=== PATIENT | female | born 1965 | race Caucasian/White ===

== ENCOUNTER → 2017-11-27 | Outpatient (CLI) | payer OTHER ==
[~2017-11-27] MED LIST: AMLO5TAB2 PO; BUDE10.2 IH; IPRA4AER IH; LEVO125T11 PO; MONT10TA21 PO; PRED20TA3 PO; PSEU60 PO
[2017-11-27 13:50] LABS: BASOPHILS % (AUTO) 0.9 % (0.0-5.0); EOSINOPHILS % (AUTO) 1.3 % (0.0-8.0); HEMATOCRIT 38.5 % (36-48); LYMPHOCYTES % (AUTO) 26.7 % (21.0-51.0); MEAN CORPUSCULAR HEMOGLOBIN 29.4 pg (27.0-33.0); MEAN CORPUSCULAR HGB CONC 33.3 g/dL (32.0-36.0); MEAN CORPUSCULAR VOLUME 88.5 fL (79-99); MONOCYTES % (AUTO) 6.9 % (3.0-13.0); NEUTROPHILS % (AUTO) 64.2 % (40.0-77.0); PLATELET COUNT (AUTO) 269 K/uL (130-400); RED BLOOD CELL COUNT(AUTO) 4.35 MIL/uL (4.00-5.50); RED CELL DISTRIBUTION WIDTH 16.6 % (11.0-15.5); WHITE BLOOD COUNT (AUTO) 8.8 K/uL (4.8-10.8)
[2017-11-27 14:07] LABS: ALBUMIN 3.8 g/dL (3.5-5.0); BILIRUBIN,DIRECT 0.1 mg/dL (0.0-0.3); BILIRUBIN,TOTAL 0.4 mg/dL (0.2-1.0); CREATININE 0.8 mg/dL (0.5-1.5); POTASSIUM 4.5 mmol/L (3.5-5.1); THYROID STIMULATING HORMONE 2.55 uIU/mL (0.36-3.74); TOTAL PROTEIN, SERUM 7.9 g/dL (6.0-8.3)
== END ==
LOC: LAB 13:12
PROVIDERS: ATTEND Internal Medicine
DX: I10 Essential (primary) hypertension (principal); E03.9 Hypothyroidism, unspecified
CPT/HCPCS: 36415; 80048; 80061; 80076; 84443; 85025

== ENCOUNTER → 2018-05-31 | Outpatient (CLI) | payer OTHER ==
[~2018-05-31] MED LIST changes: -AMLO5TAB2 PO; +AMLO5TAB7 PO
[2018-05-31 10:04] LABS: BASOPHILS % (AUTO) 0.6 % (0.0-5.0); EOSINOPHILS % (AUTO) 2.3 % (0.0-8.0); HEMATOCRIT 37.8 % (36-48); LYMPHOCYTES % (AUTO) 27.6 % (21.0-51.0); MEAN CORPUSCULAR HEMOGLOBIN 29.1 pg (27.0-33.0); MEAN CORPUSCULAR HGB CONC 32.4 g/dL (32.0-36.0); MEAN CORPUSCULAR VOLUME 89.9 fL (79-99); MONOCYTES % (AUTO) 8.7 % (3.0-13.0); NEUTROPHILS % (AUTO) 60.8 % (40.0-77.0); PLATELET COUNT (AUTO) 234 K/uL (130-400); RED CELL DISTRIBUTION WIDTH 15.6 % (11.0-15.5); WHITE BLOOD COUNT (AUTO) 5.7 K/uL (4.8-10.8)
[2018-05-31 10:34] LABS: ALBUMIN 3.5 g/dL (3.5-5.0); BILIRUBIN,TOTAL 0.2 mg/dL (0.2-1.0); CREATININE 0.8 mg/dL (0.5-1.5); POTASSIUM 3.9 mmol/L (3.5-5.1); THYROID STIMULATING HORMONE 9.3 uIU/mL (0.36-3.74); TOTAL PROTEIN, SERUM 7.1 g/dL (6.0-8.3)
== END | disposition home or self-care (01) ==
LOC: RAH 08:46
PROVIDERS: ATTEND Internal Medicine
DX: Z12.31 Encounter for screening mammogram for malignant neoplasm of breast (principal); M47.895 Other spondylosis, thoracolumbar region; E03.8 Other specified hypothyroidism; E78.5 Hyperlipidemia, unspecified; I10 Essential (primary) hypertension; J45.909 Unspecified asthma, uncomplicated; Z79.899 Other long term (current) drug therapy
CPT/HCPCS: 36415; 71046; 77067; 80053; 80061; 82607; 82652; 84443; 85025

== ENCOUNTER 2018-09-16 22:37 | Emergency (ER) | payer OTHER ==
[2018-09-16] MEDS ORDERED: FLUORESCEIN SODIUM 1 STRIP STRIP ONE (23:39)
[2018-09-17] MEDS ORDERED: GENTAMICIN SULFATE 0.3% 5ML DROPS ONE (00:04)
== END 2018-09-17 00:14 | disposition home or self-care (01) ==
LOC: EDH 22:37
DX: S05.01XA Injury of conjunctiva and corneal abrasion without foreign body, right eye, initial encounter (principal); J45.909 Unspecified asthma, uncomplicated; E78.5 Hyperlipidemia, unspecified; I10 Essential (primary) hypertension; Z88.6 Allergy status to analgesic agent; Z88.8 Allergy status to other drugs, medicaments and biological substances; X58.XXXA Exposure to other specified factors, initial encounter; Y93.89 Activity, other specified; Y92.89 Other specified places as the place of occurrence of the external cause; Y99.8 Other external cause status

== ENCOUNTER → 2018-11-12 | Outpatient (CLI) | payer OTHER ==
[~2018-11-12] MED LIST changes: -AMLO5TAB7 PO; +AMLO5TAB9 PO
[2018-11-12 09:41] LABS: BASOPHILS % (AUTO) 0.8 % (0.0-5.0); EOSINOPHILS % (AUTO) 3.1 % (0.0-8.0); HEMATOCRIT 35.4 % (36-48); LYMPHOCYTES % (AUTO) 24.3 % (21.0-51.0); MEAN CORPUSCULAR HEMOGLOBIN 28.9 pg (27.0-33.0); MEAN CORPUSCULAR HGB CONC 32.7 g/dL (32.0-36.0); MEAN CORPUSCULAR VOLUME 88.4 fL (79-99); MONOCYTES % (AUTO) 8.4 % (3.0-13.0); NEUTROPHILS % (AUTO) 63.4 % (40.0-77.0); PLATELET COUNT (AUTO) 294 K/uL (130-400); RED CELL DISTRIBUTION WIDTH 16.8 % (11.0-15.5); WHITE BLOOD COUNT (AUTO) 6.3 K/uL (4.8-10.8)
[2018-11-12 10:05] LABS: ALBUMIN 3.3 g/dL (3.5-5.0); BILIRUBIN,TOTAL 0.3 mg/dL (0.2-1.0); CREATININE 0.8 mg/dL (0.5-1.5); POTASSIUM 4.7 mmol/L (3.5-5.1); THYROID STIMULATING HORMONE 4.47 uIU/mL (0.36-3.74); TOTAL PROTEIN, SERUM 7.1 g/dL (6.0-8.3)
== END | disposition home or self-care (01) ==
LOC: LAB 09:19
PROVIDERS: ATTEND Internal Medicine
DX: E78.2 Mixed hyperlipidemia (principal); E03.8 Other specified hypothyroidism
CPT/HCPCS: 36415; 80053; 84443; 85025

== ENCOUNTER 2019-01-01 05:39 | Day surgery (SDC) | payer OTHER ==
[~2019-01-01] VITALS: Ht 162.6 cm; Wt 117.9 kg
[~2019-01-01 05:39] MED LIST changes: -AMLO5TAB9 PO; +DIPH25 PO; +HYDR12.530 PO; -IPRA4AER IH; -LEVO125T11 PO; +LEVO150T11 PO; +NEBI10TA PO; -PRED20TA3 PO; -PSEU60 PO
[2019-01-01] MEDS ORDERED: SODIUM CHLORIDE 0.9% 1000ML 1,000 ML IV ONE (05:44)
[2019-01-01] MEDS ORDERED: PROPOFOL 10 MG/ML 20ML VIAL IV ONE (07:27)
[2019-01-01] MEDS ORDERED: LIDOCAINE HCL 1% 20 ML VIAL ONE (07:27)
[2019-01-01 07:46] VITALS: BP 117/75
[2019-01-01 08:04] VITALS: BP 135/81
== END 2019-01-01 08:16 | disposition home or self-care (01) ==
LOC: DAH 05:39 → ENDO 05:39
PROVIDERS: ATTEND Internal Medicine
DX: Z12.11 Encounter for screening for malignant neoplasm of colon (principal); K63.3 Ulcer of intestine; K63.5 Polyp of colon; K62.89 Other specified diseases of anus and rectum; E78.5 Hyperlipidemia, unspecified; I10 Essential (primary) hypertension; J45.909 Unspecified asthma, uncomplicated; E03.9 Hypothyroidism, unspecified; Z79.899 Other long term (current) drug therapy; Z98.890 Other specified postprocedural states; Z68.42 Body mass index [BMI] 45.0-49.9, adult; Z88.8 Allergy status to other drugs, medicaments and biological substances; E66.9 Obesity, unspecified
CPT/HCPCS: 45380; A4606; J2704; J7030

== ENCOUNTER → 2019-06-24 | Outpatient (CLI) | payer OTHER ==
[2019-06-24 07:15] LABS: BASOPHILS % (AUTO) 1.2 % (0.0-5.0); EOSINOPHILS % (AUTO) 3.1 % (0.0-8.0); HEMATOCRIT 38.7 % (36-48); LYMPHOCYTES % (AUTO) 24.2 % (21.0-51.0); MEAN CORPUSCULAR HEMOGLOBIN 28.5 pg (27.0-33.0); MEAN CORPUSCULAR HGB CONC 32.9 g/dL (32.0-36.0); MEAN CORPUSCULAR VOLUME 86.9 fL (79-99); MONOCYTES % (AUTO) 10.7 % (3.0-13.0); NEUTROPHILS % (AUTO) 60.8 % (40.0-77.0); PLATELET COUNT (AUTO) 300 K/uL (130-400); RED BLOOD CELL COUNT(AUTO) 4.45 MIL/uL (4.00-5.50); RED CELL DISTRIBUTION WIDTH 16.9 % (11.0-15.5); WHITE BLOOD COUNT (AUTO) 8.5 K/uL (4.8-10.8)
[2019-06-24 07:34] LABS: ALBUMIN 3.6 g/dL (3.5-5.0); BILIRUBIN,DIRECT 0.1 mg/dL (0.0-0.3); BILIRUBIN,TOTAL 0.3 mg/dL (0.2-1.0); POTASSIUM 4.2 mmol/L (3.5-5.1); THYROID STIMULATING HORMONE 14.67 uIU/mL (0.36-3.74); TOTAL PROTEIN, SERUM 7.6 g/dL (6.0-8.3)
== END | disposition home or self-care (01) ==
LOC: LAB 06-20 10:41
PROVIDERS: ATTEND Internal Medicine
DX: E03.8 Other specified hypothyroidism (principal); I10 Essential (primary) hypertension; D64.89 Other specified anemias; D64.9 Anemia, unspecified
CPT/HCPCS: 36415; 80048; 80061; 80076; 84443; 85025

== ENCOUNTER → 2019-11-03 | Outpatient (CLI) | payer OTHER ==
[2019-11-03 06:44] LABS: BASOPHILS % (AUTO) 0.6 % (0.0-5.0); EOSINOPHILS % (AUTO) 4.7 % (0.0-8.0); LYMPHOCYTES % (AUTO) 35.2 % (21.0-51.0); MEAN CORPUSCULAR HEMOGLOBIN 27.7 pg (27.0-33.0); MEAN CORPUSCULAR HGB CONC 31.4 g/dL (32.0-36.0); MEAN CORPUSCULAR VOLUME 88.3 fL (79-99); NEUTROPHILS % (AUTO) 49.2 % (40.0-77.0); PLATELET COUNT (AUTO) 283 K/uL (130-400); RED BLOOD CELL COUNT(AUTO) 4.19 MIL/uL (4.00-5.50); RED CELL DISTRIBUTION WIDTH 16.8 % (11.0-15.5); WHITE BLOOD COUNT (AUTO) 7.1 K/uL (4.8-10.8)
[2019-11-03 07:09] LABS: ALBUMIN 3.2 g/dL (3.5-5.0); BILIRUBIN,TOTAL 0.3 mg/dL (0.2-1.0); CREATININE 0.8 mg/dL (0.5-1.5); POTASSIUM 4.3 mmol/L (3.5-5.1); THYROID STIMULATING HORMONE 4.26 uIU/mL (0.36-3.74); TOTAL PROTEIN, SERUM 6.9 g/dL (6.0-8.3)
[2019-11-03 07:27] LABS: BILIRUBIN,DIRECT 0.1 mg/dL (0.0-0.3)
== END | disposition home or self-care (01) ==
LOC: LAB 06:33
PROVIDERS: ATTEND Internal Medicine
DX: R73.01 Impaired fasting glucose (principal); E03.8 Other specified hypothyroidism; I10 Essential (primary) hypertension; D64.89 Other specified anemias; E78.2 Mixed hyperlipidemia
CPT/HCPCS: 36415; 80048; 80076; 84443; 85025

== ENCOUNTER → 2020-02-27 | Outpatient (CLI) | payer OTHER ==
[2020-02-27 06:44] LABS: BASOPHILS % (AUTO) 0.7 % (0.0-5.0); EOSINOPHILS % (AUTO) 4.8 % (0.0-8.0); HEMATOCRIT 35.9 % (36-48); LYMPHOCYTES % (AUTO) 32.6 % (21.0-51.0); MEAN CORPUSCULAR HEMOGLOBIN 27.8 pg (27.0-33.0); MEAN CORPUSCULAR HGB CONC 31.2 g/dL (32.0-36.0); MEAN CORPUSCULAR VOLUME 89.1 fL (79-99); MONOCYTES % (AUTO) 9.5 % (3.0-13.0); NEUTROPHILS % (AUTO) 52.4 % (40.0-77.0); PLATELET COUNT (AUTO) 276 K/uL (130-400); RED BLOOD CELL COUNT(AUTO) 4.03 MIL/uL (4.00-5.50); RED CELL DISTRIBUTION WIDTH 16.9 % (11.0-15.5); WHITE BLOOD COUNT (AUTO) 5.9 K/uL (4.8-10.8)
[2020-02-27 07:13] LABS: ALBUMIN 3.3 g/dL (3.5-5.0); BILIRUBIN,DIRECT 0.1 mg/dL (0.0-0.3); BILIRUBIN,TOTAL 0.3 mg/dL (0.2-1.0); CREATININE 1.1 mg/dL (0.5-1.5); POTASSIUM 3.8 mmol/L (3.5-5.1); THYROID STIMULATING HORMONE 12.42 uIU/mL (0.36-3.74)
== END | disposition home or self-care (01) ==
LOC: LAB 10:00
PROVIDERS: ATTEND Internal Medicine
DX: I10 Essential (primary) hypertension (principal); E03.8 Other specified hypothyroidism; D64.89 Other specified anemias; R73.01 Impaired fasting glucose
CPT/HCPCS: 36415; 80048; 80061; 80076; 84443; 85025

== ENCOUNTER → 2020-03-18 | Outpatient (CLI) | payer OTHER | END | disposition home or self-care (01) | LOC: RAH 08:25 | PROVIDERS: ATTEND Internal Medicine | DX: E03.8 Other specified hypothyroidism (principal) | CPT/HCPCS: 76536 ==

== ENCOUNTER → 2020-06-28 | Outpatient (CLI) | payer OTHER | END | disposition home or self-care (01) | LOC: LAB 09:47 | PROVIDERS: ATTEND Internal Medicine | DX: E03.8 Other specified hypothyroidism (principal) | CPT/HCPCS: 36415; 84443 ==

== ENCOUNTER → 2020-11-10 | Outpatient (CLI) | payer OTHER ==
[2020-11-10 12:48] LABS: BASOPHILS % (AUTO) 0.8 % (0.0-5.0); EOSINOPHILS % (AUTO) 5.5 % (0.0-8.0); HEMATOCRIT 41.2 % (36-48); LYMPHOCYTES % (AUTO) 34.2 % (21.0-51.0); MEAN CORPUSCULAR HEMOGLOBIN 28.8 pg (27.0-33.0); MEAN CORPUSCULAR HGB CONC 31.6 g/dL (32.0-36.0); MEAN CORPUSCULAR VOLUME 91.4 fL (79-99); NEUTROPHILS % (AUTO) 50.3 % (40.0-77.0); PLATELET COUNT (AUTO) 208 K/uL (130-400); RED BLOOD CELL COUNT(AUTO) 4.51 MIL/uL (4.00-5.50); RED CELL DISTRIBUTION WIDTH 15.1 % (11.0-15.5); WHITE BLOOD COUNT (AUTO) 6.3 K/uL (4.8-10.8)
[2020-11-10 13:13] LABS: ALBUMIN 3.9 g/dL (3.5-5.0); BILIRUBIN,DIRECT 0.2 mg/dL (0.0-0.3); BILIRUBIN,TOTAL 0.3 mg/dL (0.2-1.0); CREATININE 0.9 mg/dL (0.5-1.5); POTASSIUM 4.4 mmol/L (3.5-5.1); THYROID STIMULATING HORMONE 4.15 uIU/mL (0.36-3.74); TOTAL PROTEIN, SERUM 7.9 g/dL (6.0-8.3)
== END | disposition home or self-care (01) ==
LOC: LAB 12:23
PROVIDERS: ATTEND Internal Medicine
DX: E03.8 Other specified hypothyroidism (principal)
CPT/HCPCS: 36415; 80053; 80061; 80076; 84443; 85025

== ENCOUNTER → 2021-01-03 | Outpatient (CLI) | payer OTHER | END | disposition home or self-care (01) | LOC: RAH 10:00 | PROVIDERS: ATTEND Internal Medicine | DX: Z12.31 Encounter for screening mammogram for malignant neoplasm of breast (principal); Z00.01 Encounter for general adult medical examination with abnormal findings | CPT/HCPCS: 77067 ==

== ENCOUNTER → 2021-03-15 | Outpatient (CLI) | payer OTHER ==
[2021-03-15 10:36] LABS: BASOPHILS % (AUTO) 0.7 % (0.0-5.0); EOSINOPHILS % (AUTO) 6.8 % (0.0-8.0); HEMATOCRIT 40.3 % (36-48); LYMPHOCYTES % (AUTO) 25.9 % (21.0-51.0); MEAN CORPUSCULAR HEMOGLOBIN 29.5 pg (27.0-33.0); MONOCYTES % (AUTO) 9.1 % (3.0-13.0); NEUTROPHILS % (AUTO) 57.4 % (40.0-77.0); PLATELET COUNT (AUTO) 243 K/uL (130-400); RED BLOOD CELL COUNT(AUTO) 4.38 MIL/uL (4.00-5.50); RED CELL DISTRIBUTION WIDTH 14.4 % (11.0-15.5); WHITE BLOOD COUNT (AUTO) 7.1 K/uL (4.8-10.8)
[2021-03-15 11:05] LABS: ALBUMIN 3.9 g/dL (3.5-5.0); BILIRUBIN,TOTAL 0.3 mg/dL (0.2-1.0); CREATININE 0.9 mg/dL (0.5-1.5); POTASSIUM 4.2 mmol/L (3.5-5.1); THYROID STIMULATING HORMONE 5.67 uIU/mL (0.36-3.74); TOTAL PROTEIN, SERUM 7.6 g/dL (6.0-8.3)
== END | disposition home or self-care (01) ==
LOC: LAB 10:02
PROVIDERS: ATTEND Internal Medicine
DX: E78.2 Mixed hyperlipidemia (principal); I10 Essential (primary) hypertension; E03.8 Other specified hypothyroidism; J45.998 Other asthma; T78.3XXA Angioneurotic edema, initial encounter; Z76.89 Persons encountering health services in other specified circumstances
CPT/HCPCS: 36415; 80053; 80061; 84443; 85025

== ENCOUNTER → 2021-08-22 | Outpatient (CLI) | payer OTHER ==
[2021-08-22 14:28] LABS: BASOPHILS % (AUTO) 0.9 % (0.0-5.0); EOSINOPHILS % (AUTO) 8.6 % (0.0-8.0); HEMATOCRIT 38.9 % (36-48); LYMPHOCYTES % (AUTO) 27.1 % (21.0-51.0); MEAN CORPUSCULAR HEMOGLOBIN 28.6 pg (27.0-33.0); MEAN CORPUSCULAR HGB CONC 31.4 g/dL (32.0-36.0); MEAN CORPUSCULAR VOLUME 91.1 fL (79-99); MONOCYTES % (AUTO) 7.6 % (3.0-13.0); NEUTROPHILS % (AUTO) 55.5 % (40.0-77.0); PLATELET COUNT (AUTO) 270 K/uL (130-400); RED BLOOD CELL COUNT(AUTO) 4.27 MIL/uL (4.00-5.50); RED CELL DISTRIBUTION WIDTH 14.7 % (11.0-15.5); WHITE BLOOD COUNT (AUTO) 7.9 K/uL (4.8-10.8)
[2021-08-22 14:54] LABS: BILIRUBIN,TOTAL 0.2 mg/dL (0.2-1.0); CREATININE 0.9 mg/dL (0.5-1.5); POTASSIUM 4.3 mmol/L (3.5-5.1); THYROID STIMULATING HORMONE 2.96 uIU/mL (0.36-3.74); TOTAL PROTEIN, SERUM 7.9 g/dL (6.0-8.3)
== END | disposition home or self-care (01) ==
LOC: LAB 14:09
PROVIDERS: ATTEND Internal Medicine
DX: I10 Essential (primary) hypertension (principal); E03.8 Other specified hypothyroidism; E78.2 Mixed hyperlipidemia; J45.998 Other asthma; D64.9 Anemia, unspecified; T78.3XXA Angioneurotic edema, initial encounter; Z76.89 Persons encountering health services in other specified circumstances
CPT/HCPCS: 36415; 80053; 80061; 84443; 85025

== ENCOUNTER → 2022-02-06 | Outpatient (CLI) | payer OTHER ==
[2022-02-06 10:35] LABS: BASOPHILS % (AUTO) 0.8 % (0.0-5.0); EOSINOPHILS % (AUTO) 7.9 % (0.0-8.0); HEMATOCRIT 40.8 % (36-48); LYMPHOCYTES % (AUTO) 29.7 % (21.0-51.0); MEAN CORPUSCULAR HEMOGLOBIN 29.2 pg (27.0-33.0); MEAN CORPUSCULAR HGB CONC 32.1 g/dL (32.0-36.0); MEAN CORPUSCULAR VOLUME 91.1 fL (79-99); MONOCYTES % (AUTO) 9.1 % (3.0-13.0); NEUTROPHILS % (AUTO) 52.2 % (40.0-77.0); PLATELET COUNT (AUTO) 256 K/uL (130-400); RED BLOOD CELL COUNT(AUTO) 4.48 MIL/uL (4.00-5.50); RED CELL DISTRIBUTION WIDTH 15.3 % (11.0-15.5); WHITE BLOOD COUNT (AUTO) 7.1 K/uL (4.8-10.8)
[2022-02-06 10:58] LABS: ALBUMIN 3.6 g/dL (3.5-5.0); BILIRUBIN,TOTAL 0.2 mg/dL (0.2-1.0); CREATININE 0.9 mg/dL (0.5-1.5); POTASSIUM 4.4 mmol/L (3.5-5.1); THYROID STIMULATING HORMONE 5.67 uIU/mL (0.36-3.74); TOTAL PROTEIN, SERUM 7.5 g/dL (6.0-8.3)
== END | disposition home or self-care (01) ==
LOC: LAB 09:43
PROVIDERS: ATTEND Internal Medicine
DX: E78.2 Mixed hyperlipidemia (principal); I10 Essential (primary) hypertension
CPT/HCPCS: 36415; 80053; 80061; 84443; 85025

== ENCOUNTER → 2022-02-14 | Outpatient (CLI) | payer OTHER | END | disposition home or self-care (01) | LOC: RAH 13:12 | PROVIDERS: ATTEND Internal Medicine | DX: M17.11 Unilateral primary osteoarthritis, right knee (principal); M25.561 Pain in right knee | CPT/HCPCS: 73560 ==

== ENCOUNTER 2022-05-09 08:00 | Observation (INO) | payer OTHER ==
[~2022-05-09] VITALS: Ht 162.6 cm; Wt 112.3 kg
[~2022-05-09 08:00] MED LIST changes: -BUDE10.2 IH; -DIPH25 PO; -HYDR12.530 PO; -LEVO150T11 PO; -NEBI10TA PO
[2022-05-09 10:28] LABS: BASOPHILS % (AUTO) 0.7 % (0.0-5.0); EOSINOPHILS % (AUTO) 6.6 % (0.0-8.0); HEMATOCRIT 38.3 % (36-48); LYMPHOCYTES % (AUTO) 34.2 % (21.0-51.0); MEAN CORPUSCULAR HEMOGLOBIN 29.4 pg (27.0-33.0); MEAN CORPUSCULAR HGB CONC 32.1 g/dL (32.0-36.0); MEAN CORPUSCULAR VOLUME 91.4 fL (79-99); MONOCYTES % (AUTO) 10.1 % (3.0-13.0); NEUTROPHILS % (AUTO) 48.2 % (40.0-77.0); PLATELET COUNT (AUTO) 237 K/uL (130-400); RED BLOOD CELL COUNT(AUTO) 4.19 MIL/uL (4.00-5.50); WHITE BLOOD COUNT (AUTO) 5.9 K/uL (4.8-10.8)
[2022-05-09] MEDS ORDERED: METO-391 PO (10:28)
[2022-05-09] MEDS ORDERED: BUDE10.22 IH (10:28)
[2022-05-09] MEDS ORDERED: NAPROXEN PO (10:28)
[2022-05-09] MEDS ORDERED: FEXO180T94 PO (10:28)
[2022-05-09] MEDS ORDERED: LEVO175T9 PO (10:28)
[2022-05-09] MEDS ORDERED: GUAI600T50 PO (10:28)
[2022-05-09 10:52] LABS: INR 0.95 (0.85-1.15); PROTHROMBIN TIME 10.4 SEC (9.6-11.6)
[2022-05-09 10:54] LABS: PARTIAL THROMBOPLASTIN TIME 28.7 SEC (26.3-35.5)
[2022-05-12 09:04] VITALS: BP 144/87
[2022-05-12] MEDS: CEFAZOLIN SODIUM 1 GM VIAL IVP SCH (09:30)
[2022-05-15] VITALS (28 sets, daily range): BP systolic 99–158; BP diastolic 43–91
[2022-05-15] MEDS ORDERED: LACTATED RINGERS 1000ML 1,000 ML IV ONE (07:10)
[2022-05-15] MEDS ORDERED: FAMOTIDINE 20MG VIAL IV ONE (07:38)
[2022-05-15] MEDS ORDERED: GLYCOPYRROLATE 1 MG/5 ML SYRINGE ONE (07:41)
[2022-05-15] MEDS ORDERED: FENTANYL CITRATE PF 50 MCG/1 ML 2ML VIAL ONE ×2 (07:41→08:55)
[2022-05-15] MEDS ORDERED: ROCURONIUM 10MG/1ML SYR 10 MG/ML ML ONE (07:41)
[2022-05-15] MEDS ORDERED: PROPOFOL 10 MG/ML 20ML VIAL IV ONE (07:41)
[2022-05-15] MEDS ORDERED: LIDOCAINE PF 100MG/5ML (2%) SYRINGE 5ML ONE (07:44)
[2022-05-15] MEDS ORDERED: NEOMY SULF/BACITRAC ZN/POLY OINT 30GM TUBE TP ONE (07:51)
[2022-05-15] MEDS ORDERED: TRANEXAMIC ACID 1000MG/10ML ONE (07:52)
[2022-05-15] MEDS ORDERED: VANCOMYCIN 1G VIAL ONE (07:52)
[2022-05-15] MEDS: CEFAZOLIN SODIUM 1 GM VIAL IVP SCH (08:25)
[2022-05-15] MEDS ORDERED: MEPERIDINE-PF 25 MG/ML SYG ONE ×2 (10:21→11:39)
[2022-05-15] MEDS ORDERED: NEOSTIGMINE 5MG/5ML SYR IV ONE (10:22)
[2022-05-15] MEDS ORDERED: DiphenhydrAMINE HCL 50 MG/ML VIAL ONE (10:38)
[2022-05-15] MEDS ORDERED: MIDAZOLAM HCL 1 MG/ML 2ML VIAL ONE (10:56)
[2022-05-15] MEDS ORDERED: HYDROCODONE/ACETAMINOPHEN 5/325 MG TAB PO PRN (11:00)
[2022-05-15] MEDS ORDERED: KCL 20 MEQ ERTAB PO PRN (11:00)
[2022-05-15] MEDS ORDERED: HYDROCODONE/ACETAMINOPHEN 10/325 MG TAB PO PRN (11:00)
[2022-05-15] MEDS ORDERED: POTASSIUM CHLORIDE 10% ELIXIR 20 MEQ/15 ML UDCUP PO PRN (11:00)
[2022-05-15] MEDS ORDERED: LIDOCAINE HCL-MPF 1% 2ML VIAL IV PRN (11:00)
[2022-05-15] MEDS ORDERED: POTASSIUM CHLORIDE 20MEQ/100ML 100 ML IV PRN (11:00)
[2022-05-15] MEDS ORDERED: ONDANSETRON 4MG INJ IVP PRN (11:00)
[2022-05-15] MEDS: ACETAMINOPHEN 500 MG TABLET PO SCH ×2 (11:00→18:10)
[2022-05-15] MEDS ORDERED: HYDROMORPHONE 1 MG INJ ONE (11:12)
[2022-05-15] MEDS: TRAMADOL HCL 50 MG TABLET PO SCH ×3 (12:00→23:28)
[2022-05-15] MEDS: MORPHINE 4 MG SYG IVP PRN ×3 (13:07→20:32)
[2022-05-15] MEDS ORDERED: HYDR12.54 PO (20:20)
[2022-05-15] MEDS: BUDESONIDE 0.5 MG/2 ML INH IH SCH (20:24)
[2022-05-15] MEDS: FAMOTIDINE 20MG TAB PO SCH (20:28)
[2022-05-15] MEDS: ASPIRIN 81 MG EC TAB PO SCH (20:28)
[2022-05-15] MEDS ORDERED: MONTELUKAST SODIUM 10 MG TAB PO SCH (21:00)
[2022-05-15] MEDS: ALBUTEROL 0.083% 2.5 MG/3 ML INH IH SCH (23:16)
[2022-05-16] MEDS: ACETAMINOPHEN 500 MG TABLET PO SCH (03:16)
[2022-05-16 04:09] VITALS: BP 119/68
[2022-05-16 04:14] LABS: HEMATOCRIT 35.3 % (36-48); MEAN CORPUSCULAR HEMOGLOBIN 29.2 pg (27.0-33.0); MEAN CORPUSCULAR VOLUME 91.2 fL (79-99); RED BLOOD CELL COUNT(AUTO) 3.87 MIL/uL (4.00-5.50); RED CELL DISTRIBUTION WIDTH 14.5 % (11.0-15.5); WHITE BLOOD COUNT (AUTO) 10.3 K/uL (4.8-10.8)
[2022-05-16 04:23] LABS: CREATININE 0.9 mg/dL (0.5-1.5); POTASSIUM 4.3 mmol/L (3.5-5.1)
[2022-05-16] MEDS: TRAMADOL HCL 50 MG TABLET PO SCH ×2 (06:10→12:00)
[2022-05-16] MEDS: ALBUTEROL 0.083% 2.5 MG/3 ML INH IH SCH ×2 (06:22→11:07)
[2022-05-16] MEDS: BUDESONIDE 0.5 MG/2 ML INH IH SCH (06:22)
[2022-05-16] MEDS ORDERED: LEVOTHYROXINE 100 MCG TABLET PO SCH (06:30)
[2022-05-16] MEDS ORDERED: LEVOTHYROXINE 75 MCG TABLET PO SCH (06:30)
[2022-05-16 08:00] VITALS: BP 140/68
[2022-05-16] MEDS: ASPIRIN 81 MG EC TAB PO SCH (08:13)
[2022-05-16] MEDS: FAMOTIDINE 20MG TAB PO SCH (09:00)
[2022-05-16] MEDS ORDERED: METOPROLOL SUCCINATE 50 MG TAB.SR.24H PO SCH (09:00)
[2022-05-16] MEDS ORDERED: POLYETHYLENE GLYCOL 3350 17 GM POWD.PACK PO SCH (09:00)
[2022-05-16] MEDS ORDERED: NAPROXEN 500 MG TABLET PO SCH (09:00)
[2022-05-16] MEDS ORDERED: HYDROCHLOROTHIAZIDE 25 MG TABLET PO SCH (09:00)
[2022-05-16] MEDS ORDERED: CETIRIZINE HCL 5 MG TABLET PO SCH (09:00)
[2022-05-16] MEDS ORDERED: GUAIFENESIN 600 MG TABLET.ER PO SCH (09:00)
[2022-05-16 12:00] VITALS: BP 123/76
[2022-05-16] MEDS ORDERED: ACETAMINOPHEN 500 MG TABLET PO SCH (14:00)
[2022-05-18] MEDS ORDERED: BISACODYL 10 MG SUPP.RECT RC PRN (11:00)
== END 2022-05-16 16:50 | disposition home or self-care (01) ==
LOC: INTOOBSV 05-15 06:49 → OBSVTOIN 05-15 06:49 → DAHIP 05-15 06:49 → EDSTATUS 05-15 10:00 → 4AH 05-15 12:30
PROVIDERS: ADMIT Orthopaedic Surgery Sports Medicine; ATTEND Orthopaedic Surgery Sports Medicine
DX: M17.11 Unilateral primary osteoarthritis, right knee (principal); Z20.822 Contact with and (suspected) exposure to COVID-19; I10 Essential (primary) hypertension; J45.909 Unspecified asthma, uncomplicated; Z79.899 Other long term (current) drug therapy
CPT/HCPCS: 0055T; 27446; 36415; 73560; 80048; 85025; 85027; 85610; 85730; 87426; 94640; 94664; 96374; 96375; 96376; 97039; G0378; J0690; J1170; J1200; J2001; J2175; J2250; J2270; J2405; J2704; J2710; J3010; J3370; J3490; J7030; J7120

== ENCOUNTER → 2022-06-15 | Outpatient (CLI) | payer OTHER ==
[~2022-06-15] MED LIST changes: +BUDE10.22 IH; +FEXO180T94 PO; +GUAI600T50 PO; +HYDR12.54 PO; +LEVO175T9 PO; +METO-391 PO; +NAPROXEN PO
[2022-06-15 12:18] LABS: BASOPHILS % (AUTO) 0.6 % (0.0-5.0); EOSINOPHILS % (AUTO) 10.3 % (0.0-8.0); HEMATOCRIT 37.5 % (36-48); MEAN CORPUSCULAR HEMOGLOBIN 29.4 pg (27.0-33.0); MEAN CORPUSCULAR HGB CONC 32.3 g/dL (32.0-36.0); MONOCYTES % (AUTO) 8.3 % (3.0-13.0); NEUTROPHILS % (AUTO) 58.5 % (40.0-77.0); PLATELET COUNT (AUTO) 248 K/uL (130-400); RED BLOOD CELL COUNT(AUTO) 4.12 MIL/uL (4.00-5.50); RED CELL DISTRIBUTION WIDTH 14.5 % (11.0-15.5); WHITE BLOOD COUNT (AUTO) 9.5 K/uL (4.8-10.8)
[2022-06-15 12:47] LABS: POTASSIUM 4.2 mmol/L (3.5-5.1); THYROID STIMULATING HORMONE 3.65 uIU/mL (0.36-3.74); TOTAL PROTEIN, SERUM 7.5 g/dL (6.0-8.3)
== END | disposition home or self-care (01) ==
LOC: LAB 11:10
PROVIDERS: ATTEND Internal Medicine
DX: Z00.00 Encounter for general adult medical examination without abnormal findings (principal); M25.561 Pain in right knee; E78.2 Mixed hyperlipidemia; J45.998 Other asthma; E03.8 Other specified hypothyroidism; I10 Essential (primary) hypertension; R73.01 Impaired fasting glucose; Z68.41 Body mass index [BMI] 40.0-44.9, adult; E66.01 Morbid (severe) obesity due to excess calories; Z71.2 Person consulting for explanation of examination or test findings
CPT/HCPCS: 36415; 80053; 80061; 84443; 85025

== ENCOUNTER → 2023-02-23 | Outpatient (CLI) | payer OTHER ==
[~2023-02-23] MED LIST changes: +MONT-46 PO; -MONT10TA21 PO
[2023-02-23 08:00] LABS: BASOPHILS % (AUTO) 0.6 % (0.0-5.0); EOSINOPHILS % (AUTO) 4.1 % (0.0-8.0); HEMATOCRIT 40.6 % (36-48); LYMPHOCYTES % (AUTO) 31.6 % (21.0-51.0); MEAN CORPUSCULAR HEMOGLOBIN 27.8 pg (27.0-33.0); MEAN CORPUSCULAR HGB CONC 31.5 g/dL (32.0-36.0); MEAN CORPUSCULAR VOLUME 88.1 fL (79-99); MONOCYTES % (AUTO) 10.2 % (3.0-13.0); NEUTROPHILS % (AUTO) 53.3 % (40.0-77.0); PLATELET COUNT (AUTO) 248 K/uL (130-400); RED BLOOD CELL COUNT(AUTO) 4.61 MIL/uL (4.00-5.50); RED CELL DISTRIBUTION WIDTH 15.3 % (11.0-15.5); WHITE BLOOD COUNT (AUTO) 5.3 K/uL (4.8-10.8)
[2023-02-23 08:31] LABS: ALBUMIN 3.6 g/dL (3.5-5.0); CREATININE 0.9 mg/dL (0.5-1.5); POTASSIUM 4.1 mmol/L (3.5-5.1); THYROID STIMULATING HORMONE 0.45 uIU/mL (0.36-3.74); TOTAL PROTEIN, SERUM 7.5 g/dL (6.0-8.3)
== END | disposition home or self-care (01) ==
LOC: LAB 10:00
PROVIDERS: ATTEND Internal Medicine
DX: I10 Essential (primary) hypertension (principal); E03.8 Other specified hypothyroidism; E78.2 Mixed hyperlipidemia; J45.998 Other asthma; E66.01 Morbid (severe) obesity due to excess calories; Z71.2 Person consulting for explanation of examination or test findings; Z96.651 Presence of right artificial knee joint
CPT/HCPCS: 36415; 80053; 80061; 84443; 85025

== ENCOUNTER → 2023-03-15 | Outpatient (CLI) | payer OTHER | END | disposition home or self-care (01) | LOC: RAH 12:18 | PROVIDERS: ATTEND Internal Medicine | DX: Z12.31 Encounter for screening mammogram for malignant neoplasm of breast (principal) | CPT/HCPCS: 77067 ==

== ENCOUNTER → 2023-04-03 | Outpatient (CLI) | payer OTHER | END | disposition home or self-care (01) | LOC: RAH 09:45 | PROVIDERS: ATTEND Internal Medicine | DX: R92.8 Other abnormal and inconclusive findings on diagnostic imaging of breast (principal); N60.01 Solitary cyst of right breast; N64.89 Other specified disorders of breast | CPT/HCPCS: 76641; 77065 ==

== ENCOUNTER → 2024-06-09 | Outpatient (CLI) | payer OTHER | END | disposition home or self-care (01) | LOC: RAH 12:44 | PROVIDERS: ATTEND Internal Medicine | DX: Z12.31 Encounter for screening mammogram for malignant neoplasm of breast (principal); R92.313 Mammographic fatty tissue density, bilateral breasts | CPT/HCPCS: 77067 ==

== ENCOUNTER 2024-07-22 06:46 | Day surgery (SDC) | payer OTHER ==
[2024-07-22] VITALS (9 sets, daily range): BP systolic 104–140; BP diastolic 56–80; PULSE 65–77; RESP 15–20; TEMP 96.6–97.5
[~2024-07-22] VITALS: Ht 162.6 cm; Wt 117.9 kg
[2024-07-22] MEDS: 0.9%NACL 1000ML 1,000 ML IV ONE (09:01)
[2024-07-22] MEDS ORDERED: LORA-997 PO (09:13)
[2024-07-22] MEDS ORDERED: MULT-1203 PO (09:13)
[2024-07-22] MEDS ORDERED: HYDR12.54 PO (09:13)
[2024-07-22] MEDS ORDERED: FEXO-23 PO (09:13)
[2024-07-22] MEDS ORDERED: proPOFol 10 MG/ML 20ML VIAL IV ONE ×2 (10:30)
== END 2024-07-22 11:45 | disposition home or self-care (01) ==
LOC: DAH 06:46 → ENDO 06:46
PROVIDERS: ATTEND Internal Medicine Gastroenterology
DX: Z12.11 Encounter for screening for malignant neoplasm of colon (principal); K63.3 Ulcer of intestine; D12.8 Benign neoplasm of rectum; I10 Essential (primary) hypertension; E78.5 Hyperlipidemia, unspecified; J45.909 Unspecified asthma, uncomplicated; E03.9 Hypothyroidism, unspecified; Z96.659 Presence of unspecified artificial knee joint; Z87.19 Personal history of other diseases of the digestive system; Z98.890 Other specified postprocedural states; Z79.899 Other long term (current) drug therapy; Z88.8 Allergy status to other drugs, medicaments and biological substances
CPT/HCPCS: 45380; 45385; J7030 ×2; J2704 ×2; A4215 ×2; A4223; A4222; A4221; A4663; A4606; J3490

== ENCOUNTER → 2025-08-13 | Outpatient (CLI) | payer OTHER ==
[~2025-08-13] MED LIST changes: +FEXO-23 PO; -FEXO180T94 PO; +LORA-997 PO; +MULT-1203 PO; -NAPROXEN PO
[2025-08-13 12:49] LABS: IMMATURE GRANULOCYTE ABSOLUTE 0.02 K/uL (0-1); NUCLEATED RED BLOOD CELLS 0.0 % (0.0-0.19); PLATELET COUNT (AUTO) 297 K/uL (130-400); RED BLOOD CELL COUNT(AUTO) 4.46 MIL/uL (4.00-5.50); RED CELL DISTRIBUTION WIDTH 17.3 % (11.0-15.5); WHITE BLOOD COUNT (AUTO) 7.4 K/uL (4.8-10.8)
[2025-08-13 13:18] LABS: ASPARTATE AMINOTRANSFERASE 19.0 U/L (10-37); CREATININE 0.9 mg/dL (0.5-1.0); GLOMERULAR FILTR. RATE CALC 74.0 mL/min (>90); GLUCOSE,RANDOM 90.0 mg/dL (70-105); LDL DIRECT 150.0 mg/dL (0-99); SODIUM SERUM 137.0 mmol/L (136-145); TOTAL PROTEIN, SERUM 7.7 g/dL (6.0-8.3); UREA NITROGEN, BLOOD 15.0 mg/dL (7-18)
[2025-08-14 08:14] LABS: INSULIN, RANDOM OR FASTING 15.8 uIU/mL (2.6-24.9)
== END | disposition home or self-care (01) ==
LOC: LAB 12:08
PROVIDERS: ATTEND Internal Medicine
DX: I10 Essential (primary) hypertension (principal); E78.2 Mixed hyperlipidemia; E03.8 Other specified hypothyroidism; D50.8 Other iron deficiency anemias; E66.01 Morbid (severe) obesity due to excess calories; R73.03 Prediabetes; Z68.42 Body mass index [BMI] 45.0-49.9, adult
CPT/HCPCS: 36415; 80053; 80061; 83525; 84439; 84443; 84481; 85025; 86376